=== PATIENT | male | born 1980 | race Hispanic/Latino ===

== ENCOUNTER 2021-11-30 08:59 | Emergency (ER) | payer SELFPAY ==
[2021-11-30] MEDS ORDERED: Famotidine/PF 20 mg/2ml Vial ONE (09:34)
[2021-11-30] MEDS ORDERED: methylPREDNISolone Sod Succ/PF 125 MG/2 ML VIAL ONE (09:35)
[2021-11-30] MEDS ORDERED: diphenhydrAMINE 50 MG/ML VIAL ONE (09:36)
== END 2021-11-30 13:24 | disposition home or self-care (01) ==
LOC: ERS 08:59
DX: T78.3XXA Angioneurotic edema, initial encounter (principal); K04.7 Periapical abscess without sinus
CPT/HCPCS: 96374; 96375; J1200; J2930; S0028